=== PATIENT | female | born 1955 | race African-American/Black ===

== ENCOUNTER 2021-04-24 17:10 | Emergency (ER) | payer OTHER ==
[~2021-04-24 17:10] MED LIST: BENTYL10 MG PO; COLACE100 M1 PO; HAIR SKIN NAIL1 EACH PO; LOSARTAN-HCTZ1 EAC2 PO
[2021-04-24 20:07] LABS: BASOPHIL 0.3 % (0-2); EOSINOPHIL 0.3 % (0-5); HCT 45.7 % (37.0-47.0); HGB 15.6 g/dl (12.5-16.0); LYMPHOCYTE 20.1 % (15-48); MCH 34.1 pg (25.0-31.0); MCHC 34.1 g/dL (32.0-36.0); MONOCYTE 3.3 % (0-12); MPV 10.5 fL (6.0-9.5); NEUTROPHIL 75.5 % (41-80); NRBC 0; PLT 297 K/uL (150-400); RBC 4.57 M/uL (4.20-5.40); RDW 12.7 % (11.5-14.0); WBC 11.4 K/uL (4.0-10.5)
[2021-04-24 20:25] LABS: ALBUMIN 4.7 g/dL (3.4-5.0); BILIRUBIN - TOTAL 0.4 mg/dL (0.2-1.0); BUN/CREAT RATIO (CALC) 12.3 RATIO; C-REACTIVE PROTEIN 1.2 mg/dL (<=0.90); CREATININE 0.57 mg/dL (0.51-0.95); GLOBULIN (CALCULATION) 4.9 g/dL; POTASSIUM 3.5 mmol/L (3.5-5.1); TOTAL PROTEIN 9.6 g/dL (6.4-8.2)
[2021-04-24 20:28] LABS: LACTIC ACID 2.5 mmol/L (0.4-1.9)
[2021-04-24] MEDS ORDERED: NORCO 5-325 TA1 EACH PO (22:19)
[2021-04-24] MEDS ORDERED: AUGMENTIN 875-1 EACH PO (22:19)
[2021-04-24] MEDS ORDERED: IBUPROFEN800 MG PO (22:19)
[2021-04-24] MEDS ORDERED: ONDANSETRON ODT4 MG SL (22:19)
== END 2021-04-24 22:38 | disposition home or self-care (01) ==
LOC: FER 17:10
PROVIDERS: Emergency Medicine Emergency Medical Services
DX: K05.219 Aggressive periodontitis, localized, unspecified severity (principal); I10 Essential (primary) hypertension; Z91.040 Latex allergy status; Z79.899 Other long term (current) drug therapy; Z20.822 Contact with and (suspected) exposure to COVID-19
CPT/HCPCS: 36415; 80053; 83605; 85025; 86140; J1170; J1885; J2405; J7030; Q0163; U0002